=== PATIENT | male | born 1990 | race African-American/Black ===

== ENCOUNTER 2017-10-27 09:27 | Emergency (ER) | payer SELFPAY ==
[~2017-10-27] VITALS: Ht 177.8 cm; Wt 62.0 kg
[2017-10-27] MEDS ORDERED: SODIUM CHLORIDE 0.9% 1,000 ML IV ONE (10:22)
[2017-10-27] MEDS ORDERED: ONDANSETRON HCL 4MG/2ML VIAL IV STA (10:22)
[2017-10-27] MEDS ORDERED: LORAZEPAM 2MG/ML CPJ IV STA (10:22)
[2017-10-27 10:46] LABS: BASOPHILS % 0.9 % (0.0-2.0); EOSINOPHILS % 2.3 % (0.0-5.0); HEMATOCRIT. 46.6 % (42.0-52.0); HEMOGLOBIN. 15.6 g/dL (14.0-18.0); LYMPHOCYTES % 20.5 % (20.0-50.0); MEAN CORPUSCULAR HEMOGLOBIN 29.1 pg (28.0-32.0); MEAN CORPUSCULAR VOLUME 86.7 fL (80.0-94.0); MEAN PLATELET VOLUME 9.1 fl (7.4-10.4); MONOCYTES % 9.5 % (2.0-8.0); NEUTROPHILS % 66.8 % (40.0-76.0); PLATELET 171 x1000/uL (130-400); RED BLOOD CELL COUNT 5.37 mill/uL (4.7-6.1); RED CELL DISTRIBUTION WIDTH 13.8 % (11.6-14.6)
[2017-10-27 10:52] LABS: CHLORIDE 106 mEq/L (98-107)
[2017-10-27 10:56] LABS: ETHANOL BLOOD < 10 mg/dL
[2017-10-27] MEDS ORDERED: POTASSIUM CHLORIDE 20MEQ TABLET SR PO ONE (11:45)
[2017-10-27 13:03] LABS: CLARITY URINE CLEAR (CLEAR); COLOR URINE YELLOW (YELLOW); KETONES URINE NEGATIVE (NEGATIVE); LEUKOCYTE ESTERASE URINE NEGATIVE (NEGATIVE); NITRITE URINE NEGATIVE (NEGATIVE); OCCULT BLOOD URINE NEGATIVE (NEGATIVE); PH URINE 5.5 (4.5-8.0); PROTEIN URINE NEGATIVE (NEGATIVE); SPECIFIC GRAVITY URINE 1.032 (1.005-1.030)
[2017-10-27 13:26] LABS: *BENZODIAZEPINES SCREEN URINE NEGATIVE (NEGATIVE); *COCAINE SCREEN URINE NEGATIVE (NEGATIVE)
[2017-10-27 13:27] LABS: *AMPHETAMINES SCREEN URINE PRESUMTIVE POSITIVE (NEGATIVE); CANNABINOID URINE SCREEN PRESUMTIVE POSITIVE (NEGATIVE); METHADONE URINE SCREEN NEGATIVE (NEGATIVE); OPIATES URINE SCREEN NEGATIVE (NEGATIVE); PHENCYCLIDINE URINE SCREEN NEGATIVE (NEGATIVE)
[2017-10-27 13:28] LABS: *BARBITURATES SCREEN URINE NEGATIVE (NEGATIVE)
[2017-10-27 16:10] VITALS: BP 129/84
== END 2017-10-27 16:25 | disposition home or self-care (01) ==
LOC: ER 09:27
DX: T39.311A Poisoning by propionic acid derivatives, accidental (unintentional), initial encounter (principal); T36.0X1A Poisoning by penicillins, accidental (unintentional), initial encounter; R11.2 Nausea with vomiting, unspecified; F15.10 Other stimulant abuse, uncomplicated; F12.10 Cannabis abuse, uncomplicated; Z63.79 Other stressful life events affecting family and household; Y92.89 Other specified places as the place of occurrence of the external cause
CPT/HCPCS: 36415; 80053; 80305; 80307; 80329; 81003; 85025; 93005; 96361; 96374; 96375; 99285; G0482; J2060; J2405; J7030; Z7610

== ENCOUNTER 2018-03-04 18:27 | Emergency (ER) | payer SELFPAY ==
[~2018-03-04] VITALS: Ht 175.3 cm; Wt 64.0 kg
[2018-03-04] MEDS ORDERED: BACITRACIN ZINC OINT UDPKT TOP ONE (20:00)
[2018-03-04] MEDS ORDERED: LIDOCAINE HCL 1% 20ML VIAL (Pyxis) INJ INFIL ONE (20:30)
[2018-03-04 21:01] VITALS: BP 127/86
== END 2018-03-04 21:22 | disposition home or self-care (01) ==
LOC: ER 18:27
DX: L02.01 Cutaneous abscess of face (principal); L03.211 Cellulitis of face; F12.10 Cannabis abuse, uncomplicated; F17.200 Nicotine dependence, unspecified, uncomplicated; Z90.89 Acquired absence of other organs
CPT/HCPCS: 10060; 99283; J3490

== ENCOUNTER 2018-03-06 14:38 | Emergency (ER) | payer SELFPAY ==
[~2018-03-06] VITALS: Ht 175.3 cm; Wt 64.0 kg
[2018-03-06 14:58] VITALS: BP 121/97
== END 2018-03-06 16:09 | disposition home or self-care (01) ==
LOC: ER 14:38
DX: Z48.01 Encounter for change or removal of surgical wound dressing (principal); F17.200 Nicotine dependence, unspecified, uncomplicated
CPT/HCPCS: 99282

== ENCOUNTER 2021-12-09 17:37 | Emergency (ER) | payer SELFPAY ==
[~2021-12-09] VITALS: Ht 175.3 cm; Wt 65.0 kg
[2021-12-09 17:48] VITALS: BP 140/93
== END 2021-12-09 23:15 | disposition left against medical advice (07) ==
LOC: ER 17:37
DX: Z53.21 Procedure and treatment not carried out due to patient leaving prior to being seen by health care provider (principal)

== ENCOUNTER 2025-01-11 19:13 | Inpatient (IN) | payer MEDICAID ==
[~2025-01-11] VITALS: Ht 170.2 cm; Wt 74.0 kg
[2025-01-11 20:23] VITALS: O2SAT 100
[2025-01-11] MEDS: IBUPROFEN 800MG TABLET PO ONE (20:58)
[2025-01-11] MEDS: OXYCODONE HCL/ACETAMINOPHEN 5/325MG TABLET PO ONE (20:59)
[2025-01-11] MEDS: CEFTRIAXONE SODIUM 500MG VIAL IM ONE (20:59)
[2025-01-11 21:42] LABS: PLATELET 208 x1000/uL (130-400); RED BLOOD CELL COUNT 4.80 mill/uL (4.7-6.1); RED CELL DISTRIBUTION WIDTH 13.0 % (11.6-14.6)
[2025-01-11 21:56] LABS: CREATININE 0.9 mg/dL (0.6-1.3); UREA NITROGEN BLOOD < 5 mg/dL (9-23)
[2025-01-11] MEDS: AZITHROMYCIN 500 MG TABLET PO SCH (21:56)
[2025-01-11 22:07] LABS: C REACTIVE PROTEIN HIGH SENS 42.37 mg/l (<1.00)
[2025-01-11] MEDS: DOXYCYCLINE 100MG/100ML 100 ML IV NR (22:15)
[2025-01-11] MEDS ORDERED: DOXYCYCLINE HYCLATE 100 MG/VIAL IV ONE (22:15)
[2025-01-11 22:17] LABS: ERYTHROCYTE SEDIMENTATION RATE 28 mm/hr (0-15)
[2025-01-11] MEDS: MORPHINE SULFATE 4 MG/ML INJ (FOR IV/IM USE) IV ONE (22:41)
[2025-01-11] MEDS: SODIUM CHLORIDE 0.9% (SEPSIS BOLUS) IV ONE (22:42)
[2025-01-11] MEDS ORDERED: ZOLPIDEM TARTRATE 5MG TABLET PO PRN (22:45)
[2025-01-11] MEDS ORDERED: DOCUSATE SODIUM 100MG CAPSULE PO PRN (22:45)
[2025-01-11] MEDS ORDERED: GUAIFENESIN 200MG/10ML SUGAR FREE UDC PO PRN (22:45)
[2025-01-11] MEDS ORDERED: IPRATROPIUM/ALBUTEROL 0.5-3(2.5)MG/3ML NEB HHN PRN (22:45)
[2025-01-11] MEDS ORDERED: CLONIDINE 0.1MG TABLET PO PRN (22:45)
[2025-01-11] MEDS ORDERED: ONDANSETRON HCL 4MG/2ML INJ IV PRN (22:45)
[2025-01-11] MEDS ORDERED: ACETAMINOPHEN 325MG TABLET PO PRN (22:45)
[2025-01-12] VITALS (7 sets, daily range): BP systolic 103–134; BP diastolic 57–81; PULSE 80–95; RESP 17–18; TEMP 36.3–36.8072; O2SAT 98–100
[2025-01-12] MEDS: PANTOPRAZOLE SODIUM 40 MG/VIAL IV NR (00:25)
[2025-01-12] MEDS: POTASSIUM CHLORIDE 20MEQ TABLET SR PO NR (00:25)
[2025-01-12] MEDS: SODIUM CHLORIDE 0.9% 1,000 ML IV ONE (00:29)
[2025-01-12] MEDS: VANCOMYCIN 1.5GM PMX (XELLIA) 300 ML IV NR (01:42)
[2025-01-12 03:31] LABS: CLARITY URINE CLEAR (CLEAR); COLOR URINE YELLOW (YELLOW); GLUCOSE URINE NEGATIVE (NEGATIVE); KETONES URINE NEGATIVE (NEGATIVE); LEUKOCYTE ESTERASE URINE 2+ (NEGATIVE); NITRITE URINE NEGATIVE (NEGATIVE); OCCULT BLOOD URINE NEGATIVE (NEGATIVE); PH URINE 6.0 (4.5-8.0); PROTEIN URINE NEGATIVE (NEGATIVE); SPECIFIC GRAVITY URINE 1.011 (1.005-1.030); UROBILINOGEN URINE 1.0 E.U./dL (0.2-1.0)
[2025-01-12 04:01] LABS: *AMPHETAMINES SCREEN URINE PRESUMPTIVE POSITIVE (NEGATIVE); *BARBITURATES SCREEN URINE NEGATIVE (NEGATIVE); *BENZODIAZEPINES SCREEN URINE NEGATIVE (NEGATIVE); *COCAINE SCREEN URINE NEGATIVE (NEGATIVE)
[2025-01-12 04:02] LABS: CANNABINOID URINE SCREEN NEGATIVE (NEGATIVE); ECSTASY MDMA SCREEN URINE CONF.TEST INDICATED (NEGATIVE); METHADONE URINE SCREEN NEGATIVE (NEGATIVE); OPIATES URINE SCREEN NEGATIVE (NEGATIVE); PHENCYCLIDINE URINE SCREEN PRESUMTIVE POSITIVE (NEGATIVE)
[2025-01-12 05:00] LABS: BACTERIA URINE TRACE; RBC URINE NONE SEEN /hpf (0-2); SQUAMOUS EPITHELIAL CELL URINE NONE SEEN /lpf (RARE/1+); WBC URINE 15-25 /hpf (0-2)
[2025-01-12] MEDS: PANTOPRAZOLE 40MG DR TABLET PO SCH (06:46)
[2025-01-12] MEDS: ACETAMINOPHEN 325MG TABLET PO PRN (08:56)
[2025-01-12] MEDS: DOXYCYCLINE 100MG/100ML 100 ML IV SCH ×2 (09:31→22:30)
[2025-01-12] MEDS: VANCOMYCIN 750MG/150ML (BAXTER) IV SCH (11:48)
[2025-01-12] MEDS ORDERED: CEFTRIAXONE 1GM/50ML 50 ML IV SCH (20:00)
[2025-01-12 22:20] LABS: BASOPHILS % 0.6 % (0.0-2.0); EOSINOPHILS % 0.7 % (0.0-5.0); HEMATOCRIT. 42.6 % (42.0-52.0); HEMOGLOBIN. 13.9 g/dL (14.0-18.0); LYMPHOCYTES % 8.0 % (20.0-50.0); MEAN PLATELET VOLUME 9.5 fl (7.4-10.4); MONOCYTES % 6.3 % (2.0-8.0); NEUTROPHILS % 84.4 % (40.0-76.0); PLATELET 210 x1000/uL (130-400); RED BLOOD CELL COUNT 4.76 mill/uL (4.7-6.1); RED CELL DISTRIBUTION WIDTH 13.0 % (11.6-14.6)
[2025-01-12] MEDS: CEFTRIAXONE 1GM/50ML 50 ML IV SCH (22:29)
[2025-01-12 22:33] LABS: INR 1.2
[2025-01-12 22:39] LABS: TROPONIN I HIGH SENSITIVITY < 4 ng/L (3.0-53)
[2025-01-12 22:40] LABS: CREATINE KINASE MB FRACTION < 0.5 ng/mL (0.5-3.6)
[2025-01-12 22:41] LABS: CREATINE KINASE MB FRACTION < 0.5 ng/mL (0.5-3.6)
[2025-01-13] VITALS: BP 120/66; PULSE 78; RESP 20; TEMP 36.1; O2SAT 99
[2025-01-13 04:00] VITALS: PULSE 70; RESP 19; TEMP 36.7; O2SAT 100
[2025-01-13 08:00] VITALS: BP 126/81; PULSE 80; RESP 18; TEMP 36.8; O2SAT 100
[2025-01-13 08:52] LABS: BASOPHILS % 0.3 % (0.0-2.0); EOSINOPHILS % 0.7 % (0.0-5.0); HEMATOCRIT. 43.2 % (42.0-52.0); HEMOGLOBIN. 14.0 g/dL (14.0-18.0); LYMPHOCYTES % 9.8 % (20.0-50.0); MEAN PLATELET VOLUME 9.2 fl (7.4-10.4); MONOCYTES % 6.5 % (2.0-8.0); NEUTROPHILS % 82.7 % (40.0-76.0); PLATELET 207 x1000/uL (130-400); RED BLOOD CELL COUNT 4.80 mill/uL (4.7-6.1); RED CELL DISTRIBUTION WIDTH 13.5 % (11.6-14.6)
[2025-01-13 09:07] LABS: UREA NITROGEN BLOOD 7 mg/dL (9-23)
[2025-01-13 09:08] LABS: CREATININE 0.9 mg/dL (0.6-1.3)
[2025-01-13 09:10] LABS: ASPARTATE AMINOTRANSFERASE 14 IU/L (<34); BILIRUBIN DIRECT < 0.1 mg/dL (<=3.0); PHOSPHORUS 2.7 mg/dL (2.5-4.9)
[2025-01-13 09:11] LABS: BILIRUBIN TOTAL 0.3 mg/dL (0.1-1.0); PROTEIN TOTAL 7.5 g/dL (6.0-8.3)
[2025-01-13 09:45] LABS: HEPATITIS A AB IGM NEGATIVE (Negative)
[2025-01-13 09:46] LABS: HEPATITIS B CORE AB IGM NEGATIVE (Negative); HEPATITIS C AB NON REACTIVE (Neg) (Negative)
[2025-01-13 12:00] VITALS: BP 123/79; PULSE 80; RESP 20; TEMP 36.1; O2SAT 99
[2025-01-13] MEDS: VANCOMYCIN 1GM PMX (XELLIA) 200 ML IV SCH (15:15)
[2025-01-13 16:00] VITALS: BP 121/72; PULSE 85; RESP 20; TEMP 36.2; O2SAT 97
[2025-01-13 17:40] VITALS: BP 121/72; PULSE 85; RESP 20; TEMP 97.2
[2025-01-13] MEDS ORDERED: DOXY100T2 MT (17:44)
[2025-01-13] MEDS ORDERED: CEFP200T13 MT ×2 (17:44→17:48)
== END 2025-01-13 17:05 | disposition home or self-care (01) | DRG 892 ==
LOC: ER 19:13 → 8WST 22:23 → EDBEDREQ 22:25 → EDBEDREQTM 22:25 → ENRESERV 23:47
PROVIDERS: ADMIT Internal Medicine; ATTEND Internal Medicine
DX: A41.9 Sepsis, unspecified organism (principal); B20 Human immunodeficiency virus [HIV] disease; N45.1 Epididymitis; R59.9 Enlarged lymph nodes, unspecified; R61 Generalized hyperhidrosis; E87.6 Hypokalemia; N43.3 Hydrocele, unspecified; F15.90 Other stimulant use, unspecified, uncomplicated; F17.210 Nicotine dependence, cigarettes, uncomplicated; Z90.49 Acquired absence of other specified parts of digestive tract; Z91.199 Patient's noncompliance with other medical treatment and regimen due to unspecified reason
CPT/HCPCS: 36415; 74176; 76870; 80048; 80076; 80202; 80305; 80320; 81003; 82550; 82553; 83605; 83735; 84100; 84145; 84484; 85025; 85027; 85651; 86141; 86592; 86593; 86705; 86709; 87340; 93005; 93976; 96365; 96372; 99285; A4606; J0696; J2270; J2470; J3373; J3490; J7030; G0480